=== PATIENT | female | born 1935 | race Caucasian/White ===

== ENCOUNTER 2017-03-11 19:34 | Inpatient (IN) | payer MEDICARE ==
[2017-03-11 19:15] VITALS: BP 108/57
[~2017-03-11 19:34] MED LIST: ASPI-183 PO; ATOR20TA15 PO; BISO5TAB5 PO; CIPR250T52 PO; COMMODE 3-IN-11 MIS; DOCU100C15 PO; FAMO20TA2 PO; GETGO ROLLING W1 MI1; IRBE150T15 PO; IRBE150T49 PO; POTA10TA2 PO; SILVGEL TOPICAL; SPIR25TA PO; TYLE325T PO; ZIAC5TAB PO; [UNRECOGNIZED DRUG - OTHER]
[2017-03-11 19:37] VITALS: O2SAT 0; O2SAT 100
[2017-03-11 20:00] VITALS: BP 88/56; PULSE 100; RESP 20; TEMP 98.4; O2SAT 100
--- NOTE | 2017-03-11 20:52 | PD.PROCEDR ---
Procedure Note Procedure Date: 03/12/17 Procedure: Cardiopulmonary resuscitation Indication: Asystolic cardiac arrest Details of procedure: Pt developed asystole cardiac arrest. Per ACLS protocol pt received CPR, manual bag-valve ventilation, epinephrine x2, bicarb 50 MEQ IV. After 8 minutes resuscitation there was ROSC. Patient had large amount of food foreign body (meat) in her airway that resulted in airway obstruction and respiratory arrest. Refer to intubation note. Rissa Gama MD Mar 11, 2017 20:52
--- NOTE | 2017-03-11 20:52 | HHI.HP ---
[facility] Service Critical Care Medicine Primary Care Physician Unknown Admission Diagnosis Diagnosis: History of Present Illness 81 yo WM who was recently admitted to [facility] for right hemiparesis. She had suffered a fall and had a 1.5 cm subdural hematoma with 2 mm of midline shift. She also had a right femoral neck fracture for which she underwent right hip hemiarthroplasty 03/08/17. She was transferred to [place] rehab today and just undergoing admission process when she developed cardiac arrest secondary to aspiration of large pieces of meat. ROSC was obtained but she has subsequently had refractory myoclonus consistent with anoxia. Her says he helped to feed her pot roast at around 12:30 today prior to transfer to [place]. She previously had been on pureed diet. She has a living will that directs life prolonging procedures be withheld or withdrawn when they would serve only to prolong artificially the process of dying. Her , Zeus Vizcaino (goes [address]) is her surrogate. They have one son. Past Family Social History Allergies: Coded Allergies: No Known Allergies (Unverified Allergy, Unknown, 03/11/17) Past Medical History Stroke in September 2011 which affected one side of her face and affected her ability to 2 and swallow properly. Hypertension Hyperlipidemia Subdural hematoma in February 2017 Fall Past Surgical History Left hip arthroplasty Right wrist ORIF Reported Medications Cipro 250 g by mouth every 12 Atorvastatin 20 mg by mouth daily Bisoprolol/ HCTZ 5/6.25 one by mouth daily Irbesartan 150 mg by mouth daily Spironolactone 25 mg by mouth weekly Aspirin 325 mg by mouth daily Potassium chloride 10 mEq by mouth daily Colace 100 mg by mouth every 12 hours Family History Father at age 75" had heart trouble" Mother in her 70s Social History Quit smoking in 1968 Drinks a glass of wine daily She has one son Physical Exam Vital Signs Vital Signs Date Time Temp Pulse Resp B/P (MAP) Pulse Ox O2 Delivery O2 Flow Rate FiO2 03/11/17 19:37 0 100 Physical Exam GENERAL: Orotracheally intubated, initially on no sedation. SKIN: Warm and dry. HEAD: Atraumatic. Normocephalic. EYES: Pupils fixed and dilated. No corneal reflex.. ENT: No nasal bleeding or discharge. Mucous membranes pink and moist. NECK: Trachea midline. No JVD. CARDIOVASCULAR: Regular rate and rhythm. No murmurs rubs or gallops. RESPIRATORY: Orotracheally intubated. Rhonchorous breath sounds bilaterally. GASTROINTESTINAL: Abdomen soft, non-tender, nondistended. MUSCULOSKELETAL: Extremities without clubbing, cyanosis, or edema. NEUROLOGICAL: Pupils nonreactive, no corneal reflex, myoclonic movements of face and extremities bilaterally with any attempt at tactile stimuli. Caprini VTE Risk Assessment Caprini Risk Assessment Model Point Value = 1 Point Value = 2 Point Value = 3 Point Value = 5 Age 41-60 Minor surgery BMI > 25 kg/m2 Swollen legs Varicose veins or History of unexplained or recurrent spontaneous Oral contraceptives or hormone replacement Sepsis (< 1 month) Serious lung disease, including pneumonia (< 1 month) Abnormal pulmonary function Acute myocardial infarction Congestive heart failure (< 1 month) History of inflammatory bowel disease Medical patient at bed rest Age 61-74 Arthroscopic surgery Major open surgery (> 45 min) Laparoscopic surgery (> 45 min) Malignancy Confined to bed (> 72 hours) Immobilizing plaster cast Central venous access Age >= 75 History of VTE Family history of VTE Factor V Leiden Prothrombin [id number] Lupus anticoagulant Anticardiolipin antibodies Elevated serum homocysteine Heparin-induced thrombocytopenia Other congenital or acquired thrombophilia Stroke (< 1 month) Elective arthroplasty Hip, pelvis, or leg fracture Acute spinal cord injury (< 1 month) Prophylaxis Regimen Total Risk Factor Score Risk Level Prophylaxis Regimen 0-1 Low Early ambulation 2 Moderate Order ONE of the following: *Sequential Compression Device (SCD) *Heparin 5000 units SQ BID 3-4 Higher Order ONE of the following medications: *Heparin 5000 units SQ TID *Enoxaparin/Lovenox 40 mg SQ daily (WT < 150 kg, CrCl > 30 mL/min) *Enoxaparin/Lovenox 30 mg SQ daily (WT < 150 kg, CrCl > 10-29 mL/min) *Enoxaparin/Lovenox 30 mg SQ BID (WT < 150 kg, CrCl > 30 mL/min) AND/OR *Sequential Compression Device (SCD) 5 or more Highest Order ONE of the following medications: *Heparin 5000 units SQ TID (Preferred with Epidurals) *Enoxaparin/Lovenox 40 mg SQ daily (WT < 150 kg, CrCl > 30 mL/min) *Enoxaparin/Lovenox 30 mg SQ daily (WT < 150 kg, CrCl > 10-29 mL/min) *Enoxaparin/Lovenox 30 mg SQ BID (WT < 150 kg, CrCl > 30 mL/min) AND *Sequential Compression Device (SCD) Assessment and Plan Problem List: (1) Anoxia ICD Code: R09.02 - Hypoxemia Status: Acute (2) Acute respiratory failure with hypoxia ICD Code: J96.01 - Acute respiratory failure with hypoxia Status: Acute Assessment and Plan NEURO: Cerebral anoxia Fentanyl for analgesia/sedation Versed drip for myoclonus and seizure suppression Fosphenytoin load 1500 mg/PE Keppra 500 mg IV every 12 hours RESP: Acute respiratory failure Acute airway obstruction secondary to food foreign body in airway Prior history of tobacco abuse Intubated during code after removal of large amounts of meat from the airway. Chest x-ray was satisfactory endotracheal tube position. No lobar collapse. CV: Asystolic cardiac arrest secondary to respiratory etiology. Hypotension secondary to Post cardiac arrest syndrome Lactic acidemia A central hypertension Hyperlipidemia Fluid resuscitation with 1 L normal saline bolus followed by 0.9 NaCl at 84 mL per hour GI: Dysphagia Ischemic hepatitis Nothing by mouth. Insert OG tube. Low intermittent wall suction. FEN/RENAL: Insert Cohn. Monitor intake and output. Check electrolytes. Replace as indicated ID: Leukocytosis Monitor for signs and symptoms of infection HEME: Monitor CBC ENDO: Mild hyperglycemia, monitor PROPH: SCDs for DVT prophylaxis. Avoid pharmacologic DVT prophylaxis due to subdural hematoma. Famotidine for stress ulcer prophylaxis. ACCESS: Peripheral IVs are providing adequate access at this time. Patient is critically ill with multiorgan system dysfunction that poses a significant threat of further deterioration or . She has hypotension and refractory seizures requiring management to prevent secondary neurologic injury. Nonetheless she appears to have severe anoxia. Patient's was updated. He confirms that he does not want ACLS for cardiac arrest. Continue current supportive critical care. Will consult palliative care medicine. Would be appropriate for transition to comfort measures if that is in keeping with healthcare surrogate decisions. Living will reviewed.' Altered code - intubation only. Critical care time 45 minutes exclusive septal billable procedures. Rissa Gama MD Mar 11, 2017 20:52
--- NOTE | 2017-03-11 20:52 | PD.PROCEDR ---
Procedure Note Procedure PROCEDURE NOTE PROCEDURE: Endotracheal intubation INDICATION: Acute respiratory failure, cardiac arrest DETAILS OF PROCEDURE: CPR was ongoing. Multiple large pieces of pot roast removed from airway using suction and pulling out with my hands (no Chi forceps immediately available) . Laryngoscopy was performed with a 2 Browning blade but difficult to visualize airway because 5 or 6 different pieces of meat were in airway upon each attempt to visualize. Ultimately intubated with 3 Glidescope blade. Correct placement was confirmed with colorimetric CO2 detector. Breath sounds were equal bilaterally. No sounds auscultated over the stomach. The endotracheal tube was secured with a commercial tube starks. Patient was bagged and transferred to [facility] [place].. Stat chest x-ray was ordered. Rissa Gama MD Mar 11, 2017 20:52
[2017-03-11] MEDS ORDERED: levETIRAcetam INJ 500 MG in SODIUM CHLORIDE 0.9% INJ 100 ML IV ONE (21:30)
[2017-03-11] MEDS ORDERED: SODIUM CHLORIDE 0.9% FLUSH 10 ML FLUSH IV FLUSH PRN (21:45)
[2017-03-11] MEDS ORDERED: MISCELLANEOUS NURSING INFORMATION XX SCH (21:45)
[2017-03-11] MEDS ORDERED: LORazepam 2 MG/ML VIAL IV PUSH ONE (21:45)
[2017-03-11] MEDS ORDERED: LACTULOSE SYRUP 20 GM/30 ML CUP PO PRN (21:45)
[2017-03-11] MEDS ORDERED: RESP: ALBUTEROL 2.5 MG/3 ML NEB (PRN) INH (21:45)
[2017-03-11] MEDS ORDERED: ONDANSETRON HCL 4 MG/2 ML VIAL IV PUSH PRN (21:45)
[2017-03-11] MEDS ORDERED: BISACODYL 10 MG SUPP RECTAL PRN (21:45)
[2017-03-11] MEDS ORDERED: ACETAMINOPHEN 325 MG TAB PO PRN (21:45)
[2017-03-11] MEDS ORDERED: LORazepam 2 MG/ML VIAL ONE (21:45)
[2017-03-11] MEDS ORDERED: SENNOSIDES 8.6 MG TAB PO PRN (21:45)
[2017-03-11] MEDS ORDERED: CHLORHEXIDINE GLUCONATE 2 % 1 PACK (2 CLOTHS) TOP PRN (21:45)
[2017-03-11] MEDS ORDERED: MAGNESIUM HYDROXIDE SUSP 30 ML CUP PO PRN (21:45)
[2017-03-11 22:00] VITALS: BP 112/79; PULSE 99; RESP 26; O2SAT 100
[2017-03-11] MEDS: SODIUM CHLOR 0.9% 1000 ML INJ 1,000 ML IV SCH (22:00)
[2017-03-11] MEDS: RESP: ALBUTEROL 2.5 MG/IPRATROPIUM 0.5 MG NEB (SCH) INH (22:29)
--- NOTE | 2017-03-11 22:37 | RADRPT ---
EXAM DATE/TIME: 03/11/2017 19:52 [facility] COMPARISON: CHEST SINGLE AP, September 28, 2016, 7:24. INDICATIONS : Respiratory failure, code blue. MEDICAL HISTORY : Non-responsive. SURGICAL HISTORY : Non-responsive. ENCOUNTER: Initial ACUITY: 1 day PAIN SCORE: Non-responsive. LOCATION: Bilateral chest FINDINGS: Left basilar opacity is present may be due to a combination of consolidation and or pleural effusion. ET tube is present with tip overlapping approximately 3 cm above the rosi. Heart and mediastinum a re unremarkable for technique. Thoracic scoliosis is again seen. CONCLUSION: Left basilar opacity is present may be due to a combination of consolidation and or pleural effusion. Laura Limon MD on March 11, 2017 at 21:41 Board Certified Radiologist. This report was verified electronically.
[2017-03-11] MEDS ORDERED: PROPOFOL 500 MG/50 ML INJ 50 ML ONE (22:53)
[2017-03-11 23:00] VITALS: PULSE 101
[2017-03-11 23:30] VITALS: O2SAT 100
[2017-03-12] VITALS (26 sets, daily range): BP systolic 73–110; BP diastolic 50–63; PULSE 80–101; RESP 16–26; TEMP 98.3–102.7; O2SAT 100
[2017-03-12] MEDS ORDERED: PROPOFOL 1000 MG/100 ML IV PRN (00:15)
[2017-03-12] MEDS: MIDAZOLAM HCL 2 MG/2 ML VIAL IV PUSH PRN ×2 (00:50→02:17)
[2017-03-12] MEDS: CHLORHEXIDINE GLUCONATE 2 % 1 PACK (2 CLOTHS) TOP SCH (02:17)
[2017-03-12] MEDS ORDERED: FOSPHENYTOIN SODIUM 500 MG PE/10 ML VIAL IV ONE (03:15)
[2017-03-12] MEDS: MIDAZOLAM 100 MG/100 ML INJ 100 ML IV PRN ×2 (03:23→12:57)
[2017-03-12] MEDS: RESP: ALBUTEROL 2.5 MG/IPRATROPIUM 0.5 MG NEB (SCH) INH ×4 (03:28→21:13)
[2017-03-12] MEDS ORDERED: DEXTROSE IV ONE ×2 (03:30)
[2017-03-12] MEDS ORDERED: WATER IV ONE ×2 (03:30)
[2017-03-12] MEDS ORDERED: FOSPHENYTOIN IV ONE ×2 (03:30)
[2017-03-12 03:39] LABS: AUTOMATED NEUTROPHIL # 13.6 TH/MM3 (1.8-7.7); BASOPHIL # 0.1 TH/MM3 (0-0.2); BASOPHIL % 0.6 % (0.0-2.0); HEMATOCRIT 25.8 % (35.0-46.0); HEMOGLOBIN 8.6 GM/DL (11.6-15.3); LYMPH % 2.6 % (9.0-44.0); LYMPHOCYTE # 0.4 TH/MM3 (1.0-4.8); MEAN CELL VOLUME 89.2 FL (80.0-100.0); MEAN CORPUSCULAR HEMOGLOBIN 29.8 PG (27.0-34.0); MEAN CORPUSCULAR HGB CONC 33.5 % (32.0-36.0); MEAN PLATELET VOLUME 7.7 FL (7.0-11.0); MONO % 3.4 % (0.0-8.0); MONOCYTE # 0.5 TH/MM3 (0-0.9); NEUT % 93.4 % (16.0-70.0); PLATELET COUNT 214 TH/MM3 (150-450); RED BLOOD COUNT 2.89 MIL/MM3 (4.00-5.30); RED CELL DISTRIBUTION WIDTH 13.6 % (11.6-17.2); WHITE BLOOD COUNT 14.5 TH/MM3 (4.0-11.0)
[2017-03-12 03:44] LABS: INTERNATIONAL NORMALIZED RATIO 1.3 RATIO; PROTHROMBIN TIME - PATIENT 12.8 SEC (9.8-11.6)
[2017-03-12 04:09] LABS: ALBUMIN 2.3 GM/DL (3.4-5.0); ALT (GPT) 71 U/L (10-53); AST (GOT) 119 U/L (15-37); BICARBONATE 25.3 MEQ/L (21.0-32.0); BLOOD UREA NITROGEN 24 MG/DL (7-18); CALCIUM 7.6 MG/DL (8.5-10.1); CHLORIDE 105 MEQ/L (98-107); CREATININE 0.57 MG/DL (0.50-1.00); GLOMERULAR FILTRATION RATE 101 ML/MIN (>89); GLUCOSE,RANDOM 140 MG/DL (74-106); MAGNESIUM 1.6 MG/DL (1.5-2.5); PHOSPHORUS 2.7 MG/DL (2.5-4.9); SODIUM (NA) 141 MEQ/L (136-145)
[2017-03-12 04:12] LABS: ALKALINE PHOSPHATASE 100 U/L (45-117); TOTAL BILIRUBIN ADULT 1.3 MG/DL (0.2-1.0); TOTAL PROTEIN 5.3 GM/DL (6.4-8.2)
[2017-03-12 04:37] LABS: TROPONIN I 0.77 NG/ML (0.02-0.05)
[2017-03-12] MEDS ORDERED: MIDAZOLAM 100 MG/100 ML INJ 100 ML IV PRN ×2 (07:15)
[2017-03-12 07:41] LABS: BANDS 24 % (0-6); LYMPHOCYTES 2 % (9-44); METAMYELOCYTES 1 % (0-1); MONOCYTES 1 % (0-8); NEUTROPHIL # MANUAL DIFF 14.1 TH/MM3 (1.8-7.7); POLYS (SEG NEUTROPHILS) 72 % (16-70)
[2017-03-12 07:42] LABS: OVALOCYTES 1+ (NORMAL)
[2017-03-12] MEDS: SODIUM CHLOR 0.9% 1000 ML INJ 1,000 ML IV SCH ×2 (07:46→20:54)
[2017-03-12] MEDS: SODIUM CHLORIDE 0.9% FLUSH 10 ML FLUSH IV FLUSH SCH ×2 (07:46→20:53)
[2017-03-12] MEDS: CHLORHEXIDINE 0.12% (ORAL KIT) 15 ML CUP MT SCH ×2 (08:00→20:52)
[2017-03-12] MEDS: DOCUSATE SODIUM 50 MG/SENNA 8.6 MG TAB PO SCH ×2 (09:00→20:54)
[2017-03-12] MEDS: FAMOTIDINE 20 MG/2 ML VIAL IV PUSH SCH ×2 (09:00→20:54)
[2017-03-12] MEDS: FAMOTIDINE 20 MG TAB PO SCH ×2 (09:00→20:53)
--- NOTE | 2017-03-12 15:26 | PD.CONS ---
Consult Service Palliative Care . Consult Requested By Dr. Coffman . Primary Care Physician Unknown . Reason for Consultation a. To assist with evaluation and management of symptoms including: dyspnea ; encephalopathy; generalized pain b. To assist medical decision maker(s) with: better understanding of current medical conditions; weighing benefits/burdens of medical treatment options; making medical treatment decisions. . HPI History of Present Illness Ms. 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 She underwent right hemiarthroplasty on 03/08/17. reports that the patient had an unwitnessed fall at home on a carpeted floor. She was awake and alert when she fell and was able to call for help. She did not appear to be in pain. There was no apparent loss of consciousness. Friends and neighbors help the patient up to her chair. There was only a decision to call EMS when it was discovered the patient was unable to stand up. The patient was cognitively intact. However, in the emergency department at [facility], she suffered a seizure. She awakened following the seizure but had an agitated delirium. Delirium persisted even after her hip surgery. The patient had been advanced from a pured diet to a soft diet prior to transfer. would assist her with eating. reports she was having some difficulties. He had last had her at about 12:30 PM prior to transfer. At time of admission to [place], she had unremarkable vital signs. Exam at time of [place] admission was remarkable only for: * Healing surgical wound with hira -- no erythema or drainage * 2+ RLE edema * A single Stage 2 pressure ulcer on the right buttock. Apparently, while still undergoing the admission process in [place], the patient ate some dinner. was not present for this meal. There was an apparent aspiration event with cardiopulmonary arrest and a CODE BLUE was called. At time of intubation during the "CODE BLUE" the clinician removed large amounts of meat from the airway. 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 The patient has a living will indicating she would not want life prolonging measures should she have an end-stage condition, terminal condition, or persistent vegetative state. The patient remains intubated and mechanically ventilated. Hemoglobin is 8.6. Troponin is elevated consistent with undergoing CPR. Albumin level is 2.3. Blood pressures are low. Patient is not awakening even off sedation. . Function/Cognitive Trajectory Prior to her stroke in 09/2016 she was taking care of herself at home, amublating short distances with a cane, and was independent of ADLs. She underwent rehabilitation following her stroke in September. She was making some progress and ambulating with a walker at home. She was participating in outpatient rehabilitation. She was able to participate in minor chores around her home such as cooking and even making beds.. reports there were no significant cognitive deficits. Weight was stable. . Review of Systems ROS Limitations: Clinical Condition (patient is encephalopathic, intubated, mechanically ventilated and unable to provide her own review of systems. Review of systems provided as well as possible by medical record and available family.) Constitutional: COMPLAINS OF: Pain, DENIES: Fever, Chills Eyes: DENIES: Blurred vision, Diplopia Ears, nose, mouth, throat: COMPLAINS OF: Hearing loss Respiratory: COMPLAINS OF: Snoring, DENIES: Apneas, Wheezing, Hemoptysis, Sputum production, Shortness of breath Cardiovascular: DENIES: Chest pain, Palpitations, Syncope Gastrointestinal: COMPLAINS OF: Constipation, DENIES: Abdominal pain, Bloody stools, Dyspepsia or heartburn Genitourinary: DENIES: Urinary incontinence, Hematuria Musculoskeletal: COMPLAINS OF: Joint pain, DENIES: Back pain, Neck pain Integumentary: DENIES: Pruritus Hematologic/Lymphatics: DENIES: Bruising Neurologic: COMPLAINS OF: Abnormal gait, DENIES: Headache, Paresthesias Psychiatric: COMPLAINS OF: Confusion, DENIES: Anxiety, Depression Other ROS: Falls Past Family Social History Coded Allergies: No Known Allergies (Unverified Allergy, Unknown, 03/11/17) Past Medical History * Left MCA stroke 09/2016 * Carotid artery disease * Hypertension * Dyslipidemia Past Surgical History * Left wrist surgery * Right hip surgery * Cataract extraction * Oophorectomy Reported Medications Prehospital medications included the following: Cipro 250 g by mouth every 12 Atorvastatin 20 mg by mouth daily Bisoprolol/ HCTZ 5/6.25 one by mouth daily Irbesartan 150 mg by mouth daily Spironolactone 25 mg by mouth weekly Aspirin 325 mg by mouth daily Potassium chloride 10 mEq by mouth daily Colace 100 mg by mouth every 12 hours . Current Medications Medications (Trade) Dose Ordered Sig/Mindy Route Start Time Stop Time Status Last Admin (Peridex 0.12% Liq) 15 ml BID@08,20 MT 03/12/17 08:00 Sodium Chloride 1,000 ml @ 84 mls/hr [id number] IV 03/11/17 22:00 03/12/17 07:46 (NS Flush) 2 ml UNSCH PRN IV FLUSH 03/11/17 21:45 (NS Flush) 2 ml BID IV FLUSH 03/12/17 09:00 (Tylenol) 650 mg Q6H PRN PO 03/11/17 21:45 (Pepcid Inj) 20 mg Q12HR IV PUSH 03/12/17 09:00 (Pepcid) 20 mg Q12HR PO 03/12/17 09:00 (Zofran Inj) 4 mg Q6H PRN IV PUSH 03/11/17 21:45 (Duoneb Neb) 1 ampule Q6HR NEB INH 03/11/17 22:00 03/12/17 07:57 (Albuterol Neb) 2.5 mg Q2HR NEB PRN INH 03/11/17 21:45 Miscellaneous Information 1 [id number] XX 03/11/17 21:45 (Chlorhexidine 2% Cloth) 3 pack Taper DAILY@04 TOP 03/12/17 04:00 03/08/18 03:59 (Chlorhexidine 2% Cloth) 3 pack UNSCH PRN TOP 03/11/17 21:45 (Leslie-Colace) 1 tab BID PO 03/12/17 09:00 (Milk Of Magnesia Liq) 30 ml Q12H PRN PO 03/11/17 21:45 (Senokot) 17.2 mg Q12H PRN PO 03/11/17 21:45 (Dulcolax Supp) 10 mg DAILY PRN RECTAL 03/11/17 21:45 (Lactulose Liq) 30 ml DAILY PRN PO 03/11/17 21:45 Propofol 100 ml @ 2.295 mls/ hr TITRATE PRN IV 03/12/17 00:15 03/12/17 00:54 (Versed Inj) 2 mg Q15M PRN IV PUSH 03/12/17 00:30 03/12/17 02:17 Midazolam HCl 100 ml @ 10 mls/hr TITRATE PRN IV 03/12/17 07:15 . Family History Father at age 75" had heart trouble" Mother in her 70s . Substance Use Tobacco: Former smoker. Quit smoking in 1968. Alcohol: Occasional glass of wine Prescription med abuse: No hx of abuse Illicits: No known use of illicits. . Psychosocial History Patient is originally from [place]. She has lived in [place] over 20 years. Patient has a high school education. She worked as a manager of school. The patient was one time. She has been to her Zeus since 1959. The couple has one son, Zeus Patrick III, who lives in [place], [place]. The patient and her had been living in their own home. . Spiritual/Cultural Factors Patient comes from an [place] tradition. Faith and spirituality have not played an important part of her life recently. Animal Care Provider was offered but declined. . Living Will: Copy in medical record Health Care Surrogate: Copy in medical record Durable Power of Director Work: Never completed Date completed: Combined living will and healthcare surrogate is scanned into the medical record and dated 10/03/2008. . Health Care Surrogate(s): Combined living will and healthcare surrogate is scanned into the medical record and dated 10/03/2008. . Documented care wishes: Living will is a typical [place] living well. Patient indicates she would not want life prolonging procedures should he have a terminal condition, end-stage condition, or persistent vegetative state without reasonable medical probability of recovery. . Today's verbally stated goals: Patient is unable to verbally stated her health care goals and preferences. There is no reasonable probability she will recover capacity to do so. . Family/friends goals: Patient's and the patient's son both want to honor the patient's expressed wishes. They do not feel she would want to be prolonged any longer on life prolonging measures given her prognosis. . Ethical and Legal Issues Patient is incapacitated without reasonable likelihood of recovery capacity to make her own health care decisions. is a designated health care surrogate. No ethical conflicts or legal issues at this time. . Physical Exam Vital Signs Date Time Temp Pulse Resp B/P (MAP) Pulse Ox O2 Delivery O2 Flow Rate FiO2 03/12/17 11:22 100 30 03/12/17 11:00 80 03/12/17 11:00 80 16 91/63 (72) 100 03/12/17 10:00 80 03/12/17 10:00 80 16 88/61 (70) 100 03/12/17 09:00 81 16 83/57 (66) 100 03/12/17 09:00 81 03/12/17 08:00 30 03/12/17 08:00 98.6 81 16 82/58 (66) 100 03/12/17 08:00 81 03/12/17 07:57 100 30 03/12/17 07:00 87 03/12/17 07:00 87 16 79/50 (60) 100 03/12/17 06:10 99.6 73/53 (60) 03/12/17 04:00 102.7 98 26 78/52 (61) 100 03/12/17 04:00 100 03/12/17 03:30 100 30 03/12/17 00:00 98.4 101 26 96/51 (66) 100 03/11/17 23:30 100 30 03/11/17 23:00 101 03/11/17 22:00 99 26 112/79 (90) 100 03/11/17 20:00 98.4 100 20 88/56 (67) 100 03/11/17 20:00 100 03/11/17 19:37 0 100 03/11/17 19:15 108/57 (74) . 03/12/17 03/12/17 03/13/17 15:00 23:00 07:00 Output Total 0 ml Balance 0 ml Output Urine Total 0 ml # Bowel Movements 0 . Exam CONSTITUTIONAL/GENERAL: This is an adequately nourished patient, unresponsive off sedation, intubated, mechanically ventilated in a medical intensive care unit bed. TUBES/LINES/DRAINS: Orotracheal tube; orogastric tube; SCDs, Cohn catheter, peripheral IV SKIN: No jaundice, rashes, or lesions. Healing surgery wound.. Skin temperature appropriate. Not diaphoretic. HEAD: Atraumatic. Normocephalic. EYES: Pupils equal and round-- not reactive. Unable to evaluate extraocular movements.. No scleral icterus. No injection or drainage. Fundi not examined. ENT: Unable to evaluate hearing.. Nose without bleeding or purulent drainage. Throat without visible erythema, exudates, masses, or lesions though difficult to thoroughly visualize due to intubations. NECK: Trachea midline. Supple, nontender. No palpable thyroid enlargement or nodularity. CARDIOVASCULAR: Regular rate and rhythm without murmurs, gallops, or rubs. No JVD. Peripheral pulses symmetric. RESPIRATORY/CHEST: Symmetric, unlabored respirations. Breath sounds equal bilaterally. Coarse breath sounds throughout but no wheezing heard. GASTROINTESTINAL: Abdomen soft, non-tender, nondistended. No hepato-splenomegaly , or palpable masses. No guarding. Bowel sounds present. GENITOURINARY: Without palpable bladder distension. Cohn catheter in place. MUSCULOSKELETAL: Extremities without clubbing, cyanosis, or edema. No mottling. LYMPHATICS: No palpable cervical or supraclavicular adenopathy. NEUROLOGICAL: Unresponsive. No spontaneous movements. No myoclonus at time of my visit. PSYCHIATRIC: Unable to assess due to level of responsiveness. . Diagnostic Tests Laboratory Laboratory Tests Test 03/11/17 19:30 03/11/17 22:04 03/12/17 03:18 Nasal Screen MRSA (PCR) MRSA NOT DETECTED (NOT Blood Gas Puncture Site LT RADIAL Blood Gas Patient Temperature 98.6 Blood Gas HCO3 22 mmol/L (22-26) Blood Gas Base Excess -2.2 mmol/L (-2-2) Blood Gas Oxygen Saturation 98 % (90-100) Arterial Blood pH 7.43 (7.380-7.420) Arterial Blood Partial Pressure CO2 33 mmHg (38-42) Arterial Blood Partial Pressure O2 408 mmHg (61-120) Arterial Blood Oxygen Content 14.2 Vol % (12.0-20.0) Arterial Blood Carboxyhemoglobin 0.7 % (0-4) Arterial Blood Methemoglobin 0.9 % (0-2) Blood Gas Hemoglobin 9.5 G/DL (12.0-16.0) Oxygen Delivery Device VENTILATOR Blood Gas Ventilator Setting PRVC 16/500/8+/1.0IT Blood Gas Inspired Oxygen 100 % White Blood Count 14.5 TH/MM3 (4.0-11.0) Red Blood Count 2.89 MIL/MM3 (4.00-5.30) Hemoglobin 8.6 GM/DL (11.6-15.3) Hematocrit 25.8 % (35.0-46.0) Mean Corpuscular Volume 89.2 FL (80.0-100.0) Mean Corpuscular Hemoglobin 29.8 PG (27.0-34.0) Mean Corpuscular Hemoglobin Concent 33.5 % (32.0-36.0) Red Cell Distribution Width 13.6 % (11.6-17.2) Platelet Count 214 TH/MM3 (150-450) Mean Platelet Volume 7.7 FL (7.0-11.0) Neutrophils (%) (Auto) 93.4 % (16.0-70.0) Lymphocytes (%) (Auto) 2.6 % (9.0-44.0) Monocytes (%) (Auto) 3.4 % (0.0-8.0) Eosinophils (%) (Auto) 0.0 % (0.0-4.0) Basophils (%) (Auto) 0.6 % (0.0-2.0) Neutrophils # (Auto) 13.6 TH/MM3 (1.8-7.7) Lymphocytes # (Auto) 0.4 TH/MM3 (1.0-4.8) Monocytes # (Auto) 0.5 TH/MM3 (0-0.9) Eosinophils # (Auto) 0.0 TH/MM3 (0-0.4) Basophils # (Auto) 0.1 TH/MM3 (0-0.2) CBC Comment AUTO DIFF Differential Total Cells Counted 100 Neutrophils % (Manual) 72 % (16-70) Band Neutrophils % 24 % (0-6) Lymphocytes % 2 % (9-44) Monocytes % 1 % (0-8) Neutrophils # (Manual) 14.1 TH/MM3 (1.8-7.7) Metamyelocytes 1 % (0-1) Differential Comment FINAL DIFF MANUAL Platelet Estimate NORMAL (NORMAL) Platelet Morphology Comment NORMAL (NORMAL) Ovalocytes 1+ (NORMAL) Prothrombin Time 12.8 SEC (9.8-11.6) Prothromb Time International Ratio 1.3 RATIO Activated Partial Thromboplast Time 23.5 SEC (24.3-30.1) Blood Urea Nitrogen 24 MG/DL (7-18) Creatinine 0.57 MG/DL (0.50-1.00) Random Glucose 140 MG/DL (74-106) Total Protein 5.3 GM/DL (6.4-8.2) Albumin 2.3 GM/DL (3.4-5.0) Calcium Level 7.6 MG/DL (8.5-10.1) Phosphorus Level 2.7 MG/DL (2.5-4.9) Magnesium Level 1.6 MG/DL (1.5-2.5) Alkaline Phosphatase 100 U/L (45-117) Aspartate Amino Transf (AST/SGOT) 119 U/L (15-37) Alanine Aminotransferase (ALT/SGPT) 71 U/L (10-53) Total Bilirubin 1.3 MG/DL (0.2-1.0) Sodium Level 141 MEQ/L (136-145) Potassium Level 3.6 MEQ/L (3.5-5.1) Chloride Level 105 MEQ/L (98-107) Carbon Dioxide Level 25.3 MEQ/L (21.0-32.0) Anion Gap 11 MEQ/L (5-15) Estimat Glomerular Filtration Rate 101 ML/MIN (>89) Lactic Acid Level 3.4 mmol/L (0.4-2.0) Troponin I 0.77 NG/ML (0.02-0.05) . Result Diagram: 03/12/178 03/12/178 Microbiology Microbiology Date/Time Source Procedure Growth Status 03/12/17 04:38 Blood Peripheral Aerobic Blood Culture Pending Received 03/12/17 04:38 Blood Peripheral Anaerobic Blood Culture Pending Received 03/12/17 03:18 Blood Peripheral Aerobic Blood Culture Pending Received 03/12/17 03:18 Blood Peripheral Anaerobic Blood Culture Pending Received 03/12/17 00:42 Urine Catheterized Urine Urine Culture Pending Received . Imaging Last Impressions Chest X-Ray 03/11/17 0000 Signed Impressions: Service Date/Time: Saturday, March 11, 2017 19:52 - CONCLUSION: Left basilar opacity is present may be due to a combination of consolidation and or pleural effusion. Laura Limon MD . Procedures * Intubation/mechanical ventilation . Patient/Family Conference Present at Family Conference: Patient's and patient's son. MAMADOU Agosto was also present. . Family Conference Time (mins): 50 Issues Discussed: * Palliative care role, purpose, approach * Additional medical, psychosocial, and spiritual history * Patients general health, functional status, and cognitive changes in the months leading up to the current hospitalization * Family understanding of the current medical problems * Family understanding of prognosis * Patients goals of care as best understood from advance directives and/or conversations and/or values * Current medical treatment options and benefits/burdens of those options * Likely scenarios comparing ongoing aggressive care with a transition to comfort measures only * The logistics and process of withdrawal of life support were discussed * Questions answered to the best of my ability * Palliative care contact information provided . Assessment and Plan Disease Oriented Problem List: (1) Acute respiratory failure with hypoxia (2) Anoxia (3) Closed TBI (traumatic brain injury) (4) Hip fracture, right Symptom Scale: (1) Pain 0-10 Scale: Unable to quantify Comment: Sources of pain for this patient might include recent hip fracture/ repair; headache from increased intracranial pressure due to hemorrhage; prolonged bedbound status; orotracheal intubation; orogastric intubation; vascular access lines; Cohn catheter. Given the level of the patient's hypoxic injury, it is unclear to what extent she can still appreciate pain. Nevertheless, we want to be on the safe side and not allow unnecessary suffering. . (2) Dyspnea 0-10 Scale: Unable to quantify Comment: Dyspnea currently controlled through mechanical ventilation. (3) Encephalopathy 0-10 Scale: Unable to quantify Comment: Encephalopathy secondary to hypoxic brain injury. Pertinent Non-Medical Issues Psychosocial: Primary psychosocial support comes from the patient's approximate 57 years. There are one son, Zeus, has just flown in from [place], [place]. Spiritual: Patient comes from an [employer] tradition. Animal Care Provider services were offered and declined. Legal: A written living Will and designation of health care surrogate is on file and scanned into the patient's electronic medical record. Ethical issues impacting care: Patient is incapacitated and has no reasonable probability of recovery and capacity to make her own health care decisions. No known ethical or legal conflicts at this time. . Important Contacts * Zeus Patrick ( and health care surrogate) [phone] . Prognosis Patient suffered a severe anoxic injury from cardiorespiratory event on top of recent traumatic brain injury with intracranial bleed. She is not waking up. She has had persistent myoclonus which is an ominous sign. Given her age and current condition, chances of meaningful recovery are quite poor. In my clinical opinion the patient has an end-stage condition per [place] statutes . . Code Status: Alternative Code (no chest compressions; no shock.) Plan == Code Status: Alternate Code -- no chest compressions and no shock. Intubation/mechanical ventilation okay. == Decision making: Patient is incapacitated to make her own health care decisions. There is no reasonable probability that she will recover capacity to do so. Patient's designated health care surrogate is her Zeus Patrick. == Goals of medical treatment: The patient's living will was discussed at length with the patient's and her son. The patient's wishes expressed in the living will were also supported by multiple conversations. Both and son believes the patient would not want ongoing life prolonging measures given her current condition and prognosis. They want no further advancement in care. They're currently planning to honor the patient's wishes and withhold/ withdraw life prolonging measures beginning the morning of 03/13/17. == Symptoms: * Pain -- see above. Patient is not currently showing signs of pain. There are no opiates currently ordered but patient does have orders for propofol and midazolam if needed. * Dyspnea -- see above. Currently managed with mechanical ventilation. * Encephalopathy. This is from her hypoxic injury and is unlikely to improve substantially. == Case has been discussed with fuselage framer who agrees that patient has a terminal or end-stage condition and has no reasonable probability of recovery and capacity to make her own health care decisions. Merchandise Buyer is willing to support family decision to withhold/withdraw life prolonging measures beginning 03/13/17. == Family plans to go forward with withdrawal of life prolonging measures at approximately 11 AM on 03/13/17. == Anticipatory guidance was provided regarding the process and logistics of withholding/withdrawing life prolonging measures. All questions were answered to the best of my ability. == Palliative care will continue to follow to assist with symptom management and to further clarify goals of medical treatment as the clinical course evolves. . Time Spent Total Floor Time (mins): 95 (Total floor time included chart review; patient examination; above-referenced family meeting with the patient's and son ; above-referenced collaboration with fuselage framer; collaboration with primary nurse; and documentation.) Face to Face Time (mins): 10 >50% Counseling/Coord of Care: Yes Thank you for the opportunity to participate in the care of Ms. Patrick. . Attestation To help prompt me to consider important information that might be impacting today's encounter and assessment, information from prior notes written by myself or my colleagues may have been "brought forward" into today's note. My signature on this note, however, is an attestation that I personally performed the exam, history, and/or decision-making noted today, and, unless otherwise indicated, the interactions with patient, family, and staff as well as the review of records all occurred today. I also attest that the listed assessment and stated plan reflect my best clinical judgment today based on the combination of historical information, prior notes, and today's exam/ interactions. When time spent is documented, it refers only to time spent today by the signer, or if indicated, combined time spent today by collaborating physician/nurse practitioner. . Jorge L Meeks MD Mar 12, 2017 15:26
--- NOTE | 2017-03-12 18:41 | HHI.CCPN ---
Subjective Remarks/Hospital Course Hospital course: 81 yo WM who was recently admitted to [facility] for right hemiparesis. She had suffered a fall and had a 1.5 cm subdural hematoma with 2 mm of midline shift. She also had a right femoral neck fracture for which she underwent right hip hemiarthroplasty 03/08/17. She was transferred to [place] [facility] today and just undergoing admission process when she developed cardiac arrest secondary to aspiration of large pieces of meat. ROSC was obtained but she has subsequently had refractory myoclonus consistent with anoxia. Her says he helped to feed her pot roast at around 12:30 today prior to transfer to [place]. She previously had been on pureed diet. She has a living will that directs life prolonging procedures be withheld or withdrawn when they would serve only to prolong artificially the process of dying. Her , Zeus Vizcaino (goes by Lane) is her surrogate. They have one son. subjective: 03/12: family gathering. plans to withdraw care in the morning. no changes or improvements in severe encephalopathy. Objective Vital Signs Date Time Temp Pulse Resp B/P (MAP) Pulse Ox O2 Delivery O2 Flow Rate FiO2 03/12/17 18:00 84 03/12/17 18:00 106/60 (75) 100 03/12/17 16:00 99.9 03/12/17 16:00 30 03/12/17 11:00 16 Intake and Output 03/12/17 03/12/17 03/13/17 08:00 16:00 00:00 Intake Total 50 ml Output Total 75 ml 0 ml Balance -25 ml 0 ml Result Diagram: 03/12/17 0318 03/12/17 0318 Other Results Laboratory Tests Test 03/11/17 22:04 Blood Gas Puncture Site LT RADIAL Blood Gas Patient Temperature 98.6 Blood Gas HCO3 22 mmol/L (22-26) Blood Gas Base Excess -2.2 mmol/L (-2-2) Blood Gas Oxygen Saturation 98 % (90-100) Arterial Blood pH 7.43 (7.380-7.420) Arterial Blood Partial Pressure CO2 33 mmHg (38-42) Arterial Blood Partial Pressure O2 408 mmHg (61-120) Arterial Blood Oxygen Content 14.2 Vol % (12.0-20.0) Arterial Blood Carboxyhemoglobin 0.7 % (0-4) Arterial Blood Methemoglobin 0.9 % (0-2) Blood Gas Hemoglobin 9.5 G/DL (12.0-16.0) Oxygen Delivery Device VENTILATOR Blood Gas Ventilator Setting [facility] 16/500/8+/1.0IT Blood Gas Inspired Oxygen 100 % Objective Remarks GENERAL: Orotracheally intubated. SKIN: Warm and dry. HEAD: Atraumatic. Normocephalic. EYES: Pupils fixed and dilated. No corneal reflex.. ENT: No nasal bleeding or discharge. Mucous membranes pink and moist. NECK: Trachea midline. No JVD. CARDIOVASCULAR: Regular rate and rhythm. No murmurs rubs or gallops. RESPIRATORY: Orotracheally intubated. Rhonchorous breath sounds bilaterally. GASTROINTESTINAL: Abdomen soft, non-tender, nondistended. MUSCULOSKELETAL: Extremities without clubbing, cyanosis, or edema. NEUROLOGICAL: Pupils nonreactive, no corneal reflex, myoclonic movements of face and extremities bilaterally with any attempt at tactile stimuli. A/P Problem List: (1) Anoxia ICD Code: R09.02 - Hypoxemia Status: Acute (2) Acute respiratory failure with hypoxia ICD Code: J96.01 - Acute respiratory failure with hypoxia Status: Acute Assessment and Plan NEURO: Cerebral anoxia Fentanyl for analgesia/sedation Versed drip for myoclonus and seizure suppression Fosphenytoin load 1500 mg/PE Keppra 500 mg IV every 12 hours RESP: Acute respiratory failure Acute airway obstruction secondary to food foreign body in airway Prior history of tobacco abuse Intubated during code after removal of large amounts of meat from the airway. Chest x-ray was satisfactory endotracheal tube position. No lobar collapse. CV: Asystolic cardiac arrest secondary to respiratory etiology. Hypotension secondary to Post cardiac arrest syndrome Lactic acidemia A central hypertension Hyperlipidemia Fluid resuscitation with 1 L normal saline bolus followed by 0.9 NaCl at 84 mL per hour GI: Dysphagia Ischemic hepatitis Nothing by mouth. FEN/RENAL:. Monitor intake and output. icu electrolyte protocol. ID: Leukocytosis Monitor for signs and symptoms of infection HEME: Monitor CBC ENDO: Mild hyperglycemia, monitor PROPH: SCDs for DVT prophylaxis. Avoid pharmacologic DVT prophylaxis due to subdural hematoma. Famotidine for stress ulcer prophylaxis. ACCESS: Peripheral IVs are providing adequate access at this time. Patient is critically ill with multiorgan system dysfunction that poses a significant threat of further deterioration or . She has hypotension and refractory seizures requiring management to prevent secondary neurologic injury. Nonetheless she appears to have severe anoxia. Agree with decision to withdraw life support tomorrow as this aggressive care does not appear to be in congruence with patient's wishes. Christopher Coffman MD Mar 12, 2017 18:41
[2017-03-13] VITALS (8 sets, daily range): BP systolic 107–119; BP diastolic 49–69; PULSE 93–111; RESP 16; TEMP 97.4–98.3; O2SAT 100
[2017-03-13] MEDS: RESP: ALBUTEROL 2.5 MG/IPRATROPIUM 0.5 MG NEB (SCH) INH ×2 (03:10→07:31)
[2017-03-13] MEDS: CHLORHEXIDINE GLUCONATE 2 % 1 PACK (2 CLOTHS) TOP SCH (04:00)
--- NOTE | 2017-03-13 08:45 | HHI.CCPN ---
Subjective Remarks/Hospital Course Hospital course: 81 yo WM who was recently admitted to [facility] for right hemiparesis. She had suffered a fall and had a 1.5 cm subdural hematoma with 2 mm of midline shift. She also had a right femoral neck fracture for which she underwent right hip hemiarthroplasty 03/08/17. She was transferred to [place] [facility] today and just undergoing admission process when she developed cardiac arrest secondary to aspiration of large pieces of meat. ROSC was obtained but she has subsequently had refractory myoclonus consistent with anoxia. Her says he helped to feed her pot roast at around 12:30 today prior to transfer to [place]. She previously had been on pureed diet. She has a living will that directs life prolonging procedures be withheld or withdrawn when they would serve only to prolong artificially the process of dying. Her , Zeus Vizcaino (goes by [address]) is her surrogate. They have one son. subjective: 03/12: family gathering. plans to withdraw care in the morning. no changes or improvements in severe encephalopathy. 03/13: Remains encephalopathic, orally intubated on mechanical ventilation. Remains on Versed gtt. for myoclonus Objective Vital Signs Date Time Temp Pulse Resp B/P (MAP) Pulse Ox O2 Delivery O2 Flow Rate FiO2 03/13/17 07:32 100 30 03/13/17 06:00 110 03/13/17 04:00 98.3 16 119/69 (86) Intake and Output 03/13/17 03/13/17 03/14/17 08:00 16:00 00:00 Intake Total 0 ml Output Total 50 ml Balance -50 ml Result Diagram: 03/12/17 0318 03/12/17 0318 Imaging Last Impressions Chest X-Ray 03/11/17 0000 Signed Impressions: Service Date/Time: Saturday, March 11, 2017 19:52 - CONCLUSION: Left basilar opacity is present may be due to a combination of consolidation and or pleural effusion. Laura Limon MD Objective Remarks GENERAL: Orotracheally intubated. SKIN: Warm and dry. HEAD: Atraumatic. Normocephalic. EYES: Pupils fixed and dilated. No corneal reflex.. ENT: No nasal bleeding or discharge. Mucous membranes pink and moist. NECK: Trachea midline. No JVD. CARDIOVASCULAR: Regular rate and rhythm. No murmurs rubs or gallops. RESPIRATORY: Orotracheally intubated. Rhonchorous breath sounds bilaterally. GASTROINTESTINAL: Abdomen soft, non-tender, nondistended. MUSCULOSKELETAL: Extremities without clubbing, cyanosis, or edema. NEUROLOGICAL: Pupils nonreactive, no corneal reflex, myoclonic movements of face and extremities bilaterally with any attempt at tactile stimuli. A/P Problem List: (1) Anoxia ICD Code: R09.02 - Hypoxemia Status: Acute (2) Acute respiratory failure with hypoxia ICD Code: J96.01 - Acute respiratory failure with hypoxia Status: Acute Assessment and Plan NEURO: Cerebral anoxia Fentanyl for analgesia/sedation Versed drip for myoclonus and seizure suppression Fosphenytoin load 1500 mg/PE Keppra 500 mg IV every 12 hours RESP: Acute respiratory failure Acute airway obstruction secondary to food foreign body in airway Prior history of tobacco abuse Intubated during code after removal of large amounts of meat from the airway. Chest x-ray was satisfactory endotracheal tube position. No lobar collapse. CV: Asystolic cardiac arrest secondary to respiratory etiology. Hypotension secondary to Post cardiac arrest syndrome Lactic acidemia A central hypertension Hyperlipidemia Fluid resuscitation with 1 L normal saline bolus followed by 0.9 NaCl at 84 mL per hour GI: Dysphagia Ischemic hepatitis Nothing by mouth. FEN/RENAL:. Monitor intake and output. icu electrolyte protocol. ID: Leukocytosis Monitor for signs and symptoms of infection HEME: Monitor CBC ENDO: Mild hyperglycemia, monitor PROPH: SCDs for DVT prophylaxis. Avoid pharmacologic DVT prophylaxis due to subdural hematoma. Famotidine for stress ulcer prophylaxis. ACCESS: Peripheral IVs are providing adequate access at this time. Patient is critically ill with multiorgan system dysfunction that poses a significant threat of further deterioration or . She has hypotension and refractory seizures requiring management to prevent secondary neurologic injury. Nonetheless she appears to have severe anoxia. Agree with decision to withdraw life support as this aggressive care does not appear to be in congruence with patient's wishes. Palliative care team following. Possible terminal wean to be performed on 03/13. Condition remains critical. Time spent on critical care excluding procedures 30 minutes Jeffrey Recinos MD Mar 13, 2017 08:45
[2017-03-13] MEDS ORDERED: LORazepam 2 MG/ML VIAL IV PUSH ONE ×2 (11:30→11:45)
[2017-03-13] MEDS ORDERED: MORPHINE SULFATE 2 MG/ML INJ IV PUSH ONE (11:45)
[2017-03-13] MEDS ORDERED: LORazepam 2 MG/ML VIAL IV PUSH PRN ×3 (12:00)
[2017-03-13] MEDS ORDERED: FUROSEMIDE 20 MG/2 ML VIAL IV PUSH PRN (12:00)
[2017-03-13] MEDS ORDERED: ACETAMINOPHEN 650 MG SUPP RECTAL PRN (12:00)
[2017-03-13] MEDS ORDERED: BISACODYL 10 MG SUPP RECTAL PRN (12:00)
[2017-03-13] MEDS ORDERED: MORPHINE SULFATE 2 MG/ML INJ IV PUSH PRN (12:00)
--- NOTE | 2017-03-13 20:28 | HHI.HCPN ---
Reason for visit a. To assist with evaluation and management of symptoms including: dyspnea ; encephalopathy; generalized pain b. To assist medical decision maker(s) with: better understanding of current medical conditions; weighing benefits/burdens of medical treatment options; making medical treatment decisions. . Subjective/Interval History No significant change in patient overnight. Remains minimally responsive off all sedation in the medical intensive care unit. . Family/friend interactions Met with patient's and son again at bedside. Family is still desiring compassionate withdrawal of life prolonging measures. Once again discussed process. Answered questions. Offered mfts. . Advance Directives Living Will: Copy in medical record Health Care Surrogate: Copy in medical record Durable Power of Software Test Technician: Never completed Advance Directive Specifics Date completed: Combined living will and healthcare surrogate is scanned into the medical record and dated 10/03/2008. . Health Care Surrogate(s): Combined living will and healthcare surrogate is scanned into the medical record and dated 10/03/2008. . Documented care wishes: Living will is a typical [place] living well. Patient indicates she would not want life prolonging procedures should he have a terminal condition, end-stage condition, or persistent vegetative state without reasonable medical probability of recovery. . Objective Vital Signs Date Time Temp Pulse Resp B/P (MAP) Pulse Ox O2 Delivery O2 Flow Rate FiO2 03/13/17 11:00 97.4 101 16 107/49 (68) 100 03/13/17 10:18 100 30 03/13/17 07:32 100 30 03/13/17 06:00 110 03/13/17 04:00 30 03/13/17 04:00 111 03/13/17 04:00 98.3 111 16 119/69 (86) 100 03/13/17 03:07 100 30 03/13/17 02:00 101 03/13/17 00:00 97.8 93 16 112/66 (81) 100 03/13/17 00:00 93 03/13/17 00:00 30 03/12/17 22:55 100 30 03/12/17 22:00 91 . Physical Exam CONSTITUTIONAL/GENERAL: This is an adequately nourished patient, unresponsive off sedation, intubated, mechanically ventilated in a medical intensive care unit bed. TUBES/LINES/DRAINS: Orotracheal tube; orogastric tube; SCDs, Cohn catheter, peripheral IV SKIN: No jaundice, rashes, or lesions. Healing surgery wound.. Skin temperature appropriate. Not diaphoretic. HEAD: Atraumatic. Normocephalic. EYES: Pupils equal and round-- not reactive. Unable to evaluate extraocular movements.. No scleral icterus. No injection or drainage. Fundi not examined. ENT: Unable to evaluate hearing.. Nose without bleeding or purulent drainage. Throat without visible erythema, exudates, masses, or lesions though difficult to thoroughly visualize due to intubations. NECK: Trachea midline. CARDIOVASCULAR: Regular rate and rhythm without murmurs, gallops, or rubs. No JVD. RESPIRATORY/CHEST: Symmetric, unlabored respirations. Breath sounds equal bilaterally. Coarse breath sounds throughout but no wheezing heard. GASTROINTESTINAL: Abdomen soft, non-tender, nondistended. No hepato-splenomegaly , or palpable masses. GENITOURINARY: Without palpable bladder distension. Cohn catheter in place. MUSCULOSKELETAL: Extremities without clubbing, cyanosis, or edema. No mottling. LYMPHATICS: Not examined NEUROLOGICAL: Unresponsive. No spontaneous movements. No myoclonus at time of my visit. PSYCHIATRIC: Unable to assess due to level of responsiveness. . Diagnostic Tests Laboratory Laboratory Tests Test 03/11/17 19:30 03/11/17 22:04 03/12/17 03:18 Nasal Screen MRSA (PCR) MRSA NOT DETECTED (NOT Blood Gas Puncture Site LT RADIAL Blood Gas Patient Temperature 98.6 Blood Gas HCO3 22 mmol/L (22-26) Blood Gas Base Excess -2.2 mmol/L (-2-2) Blood Gas Oxygen Saturation 98 % (90-100) Arterial Blood pH 7.43 (7.380-7.420) Arterial Blood Partial Pressure CO2 33 mmHg (38-42) Arterial Blood Partial Pressure O2 408 mmHg (61-120) Arterial Blood Oxygen Content 14.2 Vol % (12.0-20.0) Arterial Blood Carboxyhemoglobin 0.7 % (0-4) Arterial Blood Methemoglobin 0.9 % (0-2) Blood Gas Hemoglobin 9.5 G/DL (12.0-16.0) Oxygen Delivery Device VENTILATOR Blood Gas Ventilator Setting [facility] 16/500/8+/1.0IT Blood Gas Inspired Oxygen 100 % White Blood Count 14.5 TH/MM3 (4.0-11.0) Red Blood Count 2.89 MIL/MM3 (4.00-5.30) Hemoglobin 8.6 GM/DL (11.6-15.3) Hematocrit 25.8 % (35.0-46.0) Mean Corpuscular Volume 89.2 FL (80.0-100.0) Mean Corpuscular Hemoglobin 29.8 PG (27.0-34.0) Mean Corpuscular Hemoglobin Concent 33.5 % (32.0-36.0) Red Cell Distribution Width 13.6 % (11.6-17.2) Platelet Count 214 TH/MM3 (150-450) Mean Platelet Volume 7.7 FL (7.0-11.0) Neutrophils (%) (Auto) 93.4 % (16.0-70.0) Lymphocytes (%) (Auto) 2.6 % (9.0-44.0) Monocytes (%) (Auto) 3.4 % (0.0-8.0) Eosinophils (%) (Auto) 0.0 % (0.0-4.0) Basophils (%) (Auto) 0.6 % (0.0-2.0) Neutrophils # (Auto) 13.6 TH/MM3 (1.8-7.7) Lymphocytes # (Auto) 0.4 TH/MM3 (1.0-4.8) Monocytes # (Auto) 0.5 TH/MM3 (0-0.9) Eosinophils # (Auto) 0.0 TH/MM3 (0-0.4) Basophils # (Auto) 0.1 TH/MM3 (0-0.2) CBC Comment AUTO DIFF Differential Total Cells Counted 100 Neutrophils % (Manual) 72 % (16-70) Band Neutrophils % 24 % (0-6) Lymphocytes % 2 % (9-44) Monocytes % 1 % (0-8) Neutrophils # (Manual) 14.1 TH/MM3 (1.8-7.7) Metamyelocytes 1 % (0-1) Differential Comment FINAL DIFF MANUAL Platelet Estimate NORMAL (NORMAL) Platelet Morphology Comment NORMAL (NORMAL) Ovalocytes 1+ (NORMAL) Prothrombin Time 12.8 SEC (9.8-11.6) Prothromb Time International Ratio 1.3 RATIO Activated Partial Thromboplast Time 23.5 SEC (24.3-30.1) Blood Urea Nitrogen 24 MG/DL (7-18) Creatinine 0.57 MG/DL (0.50-1.00) Random Glucose 140 MG/DL (74-106) Total Protein 5.3 GM/DL (6.4-8.2) Albumin 2.3 GM/DL (3.4-5.0) Calcium Level 7.6 MG/DL (8.5-10.1) Phosphorus Level 2.7 MG/DL (2.5-4.9) Magnesium Level 1.6 MG/DL (1.5-2.5) Alkaline Phosphatase 100 U/L (45-117) Aspartate Amino Transf (AST/SGOT) 119 U/L (15-37) Alanine Aminotransferase (ALT/SGPT) 71 U/L (10-53) Total Bilirubin 1.3 MG/DL (0.2-1.0) Sodium Level 141 MEQ/L (136-145) Potassium Level 3.6 MEQ/L (3.5-5.1) Chloride Level 105 MEQ/L (98-107) Carbon Dioxide Level 25.3 MEQ/L (21.0-32.0) Anion Gap 11 MEQ/L (5-15) Estimat Glomerular Filtration Rate 101 ML/MIN (>89) Lactic Acid Level 3.4 mmol/L (0.4-2.0) Troponin I 0.77 NG/ML (0.02-0.05) . Result Diagram: 03/12/178 03/12/178 Microbiology Microbiology Date/Time Source Procedure Growth Status 03/12/17 04:38 Blood Peripheral Aerobic Blood Culture - Preliminary NO GROWTH IN 1 DAY Resulted 03/12/17 04:38 Blood Peripheral Anaerobic Blood Culture - Preliminary NO GROWTH IN 1 DAY Resulted 03/12/17 03:18 Blood Peripheral Aerobic Blood Culture - Preliminary NO GROWTH IN 1 DAY Resulted 03/12/17 03:18 Blood Peripheral Anaerobic Blood Culture - Final QNS - SEE AEROBE REPORT Resulted 03/12/17 00:42 Urine Catheterized Urine Urine Culture - Preliminary NO GROWTH IN 24 HOURS. Resulted . Imaging Last Impressions Chest X-Ray 03/11/17 0000 Signed Impressions: Service Date/Time: Saturday, March 11, 2017 19:52 - CONCLUSION: Left basilar opacity is present may be due to a combination of consolidation and or pleural effusion. Laura Limon MD . Procedures * Intubation/mechanical ventilation . Assessment and Plan Disease Oriented Problem List: (1) Acute respiratory failure with hypoxia (2) Anoxia (3) Closed TBI (traumatic brain injury) (4) Hip fracture, right Symptom Scale: (1) Pain 0-10 Scale: Unable to quantify Comment: Sources of pain for this patient might include recent hip fracture/ repair; headache from increased intracranial pressure due to hemorrhage; prolonged bedbound status; orotracheal intubation; orogastric intubation; vascular access lines; Cohn catheter. Given the level of the patient's hypoxic injury, it is unclear to what extent she can still appreciate pain. Nevertheless, we want to be on the safe side and not allow unnecessary suffering. . (2) Dyspnea 0-10 Scale: Unable to quantify Comment: Dyspnea currently controlled through mechanical ventilation. (3) Encephalopathy 0-10 Scale: Unable to quantify Comment: Encephalopathy secondary to hypoxic brain injury. Pertinent Non-Medical Issues Psychosocial: Primary psychosocial support comes from the patient's approximate 57 years. There are one son, Zeus, has just flown in from [place], [place]. Spiritual: Patient comes from an [employer] tradition. Digital Analytics Manager services were offered and declined. Legal: A written living Will and designation of health care surrogate is on file and scanned into the patient's electronic medical record. Ethical issues impacting care: Patient is incapacitated and has no reasonable probability of recovery and capacity to make her own health care decisions. No known ethical or legal conflicts at this time. . Important Contacts * Zeus Mendozabc Rob ( and health care surrogate) [phone] . Prognosis Patient suffered a severe anoxic injury from cardiorespiratory event on top of recent traumatic brain injury with intracranial bleed. She is not waking up. She has had persistent myoclonus which is an ominous sign. Given her age and current condition, chances of meaningful recovery are quite poor. In my clinical opinion the patient has an end-stage condition per [place] statutes . . Code Status: No Code Plan == Code Status: CODE STATUS changed to "no code" today in preparation for compassionate withdrawal of life prolonging measures. == Decision making: Patient is incapacitated to make her own health care decisions. There is no reasonable probability that she will recover capacity to do so. Patient's designated health care surrogate is her Zeus Patrick. == Goals of medical treatment: The family including a legal decision-maker, want to go forward with compassionate withdrawal of life prolonging measures per our discussion of 03/12/2017. == Symptoms: * Pain -- see above. Patient is not currently showing signs of pain. There are no opiates currently ordered but patient does have orders for propofol and midazolam if needed. * Dyspnea -- see above. Currently managed with mechanical ventilation. * Encephalopathy. This is from her hypoxic injury and is unlikely to improve substantially. == Appropriate "exhibits" signed by physicians. 2 physicians have now signed that patient has an end-stage or terminal condition and has no reasonable probability of recovery capacity to make her own decisions. == Appropriate "exhibit" signed by the patient's health care surrogate permitting withdrawal of life prolonging measures. == I personally wrote orders for compassionate withdrawal and for post withdrawal comfort. Orders discussed with primary nurse. == Anticipatory guidance was provided to family. . . Time Spent Total Floor Time (mins): 40 (Total floor time included chart review, patient examination, above-referenced discussion with the patient's, writing orders for withdrawal of life prolonging measures, collaboration with primary nurse. And documentation.) Face to Face Time (mins): 10 >50% Counseling/Coord of Care: Yes Attestation To help prompt me to consider important information that might be impacting today's encounter and assessment, information from prior notes written by myself or my colleagues may have been "brought forward" into today's note. My signature on this note, however, is an attestation that I personally performed the exam, history, and/or decision-making noted today, and, unless otherwise indicated, the interactions with patient, family, and staff as well as the review of records all occurred today. I also attest that the listed assessment and stated plan reflect my best clinical judgment today based on the combination of historical information, prior notes, and today's exam/ interactions. When time spent is documented, it refers only to time spent today by the signer, or if indicated, combined time spent today by collaborating physician/nurse practitioner. . Jorge L Meeks MD Mar 13, 2017 20:28
== END 2017-03-13 12:56 | disposition expired | DRG 208 ==
LOC: HIMW 19:34
PROVIDERS: ADMIT Emergency Medicine; ATTEND Emergency Medicine
PROC: 5A12012 Performance of Cardiac Output, Single, Manual (ICD-10-PCS; principal; 2017-03-11)
PROC: 5A1945Z Respiratory Ventilation, 24-96 Consecutive Hours (ICD-10-PCS; 2017-03-11)
PROC: 0BH17EZ Insertion of Endotracheal Airway into Trachea, Via Natural or Artificial Opening (ICD-10-PCS; 2017-03-11)
PROC: 0CJS8ZZ Inspection of Larynx, Via Natural or Artificial Opening Endoscopic (ICD-10-PCS; 2017-03-11)
PROC: 0CC Mouth and Throat, Extirpation (ICD-10-PCS; 2017-03-11)
PROC: 0T9B70Z Drainage of Bladder with Drainage Device, Via Natural or Artificial Opening (ICD-10-PCS; 2017-03-11)
DX: T17.920A Food in respiratory tract, part unspecified causing asphyxiation, initial encounter (principal); I46.9 Cardiac arrest, cause unspecified; G93.1 Anoxic brain damage, not elsewhere classified; E87.2 Acidosis; I95.9 Hypotension, unspecified; I69.351 Hemiplegia and hemiparesis following cerebral infarction affecting right dominant side; K75.89 Other specified inflammatory liver diseases; R13.10 Dysphagia, unspecified; X58.XXXA Exposure to other specified factors, initial encounter; Y93.89 Activity, other specified; G25.3 Myoclonus; I10 Essential (primary) hypertension; E78.5 Hyperlipidemia, unspecified; Z87.891 Personal history of nicotine dependence; Z96.642 Presence of left artificial hip joint; Z51.5 Encounter for palliative care; R73.9 Hyperglycemia, unspecified
CPT/HCPCS: 36600; 71045; 76937; 80053; 82805; 83605; 83735; 84100; 84484; 85007; 85027; 85610; 85730; 87040; 87086; 87641; 94002; 94003; 94640; 94664; J1953; J2060; J2250; J2270; J7030; Q2009